=== PATIENT | female | born 1950 | race Caucasian/White ===

== ENCOUNTER 2018-03-26 18:15 | Observation (INO) | payer OTHER ==
[2018-03-26] MEDS ORDERED: Iodixanol 320 MG/ML 100 ML BOTTLE IV ONE (18:28)
[2018-03-26 18:31] LABS: BASO # 0.1 K/uL (0.0-0.2); BASO % 0.8 % (0.0-2.0); EOS # 0.3 K/uL (0.0-0.7); EOS % 4.8 % (0.0-4.0); HEMOGLOBIN 12.7 g/dL (11.0-16.0); LYMPH # 3.1 K/uL (1.0-4.3); LYMPH % 47.6 % (20.0-40.0); MEAN CELL VOLUME 80.1 fL (81.0-99.0); MEAN CORPUSCULAR HEMOGLOBIN 26.7 pg (27.0-31.0); MEAN CORPUSCULAR HGB CONC 33.3 g/dL (33.0-37.0); MONO # 0.5 K/uL (0.0-0.8); MONO % 7.2 % (0.0-10.0); NEUT # 2.6 K/uL (1.8-7.0); NEUT % 39.6 % (50.0-75.0); NRBC % 0.1 % (0.0-2.0); RBC 4.76 Mil/uL (3.80-5.20); RED CELL DISTRIBUTION WIDTH 14.7 % (11.5-14.5); WHITE BLOOD COUNT 6.6 K/uL (4.8-10.8)
[2018-03-26 18:38] LABS: PROTHROMBIN TIME 10.6 SECONDS (9.7-12.2)
[2018-03-26 18:45] LABS: ALB/GLOB RATIO 1.2 (1.0-2.1); ALBUMIN 4.3 g/dL (3.5-5.0); ALT/SGPT 25 U/L (9-52); AST/SGOT 26 U/L (14-36); BLOOD UREA NITROGEN 21 mg/dL (7-17); GFR AFRICAN-AMERICAN > 60; GFR NON-AFRICAN AMERICAN > 60; HDL CHOLESTEROL 55 mg/dL (30-70)
--- NOTE | 2018-03-26 18:50 | CT ---
PROCEDURE: CT HEAD WITHOUT CONTRAST. HISTORY: Code Stroke COMPARISON: None available. TECHNIQUE: Axial computed tomography images were obtained through the head/brain without intravenous contrast. Radiation dose: Total exam DLP = 1212.5 mGy-cm. This CT exam was performed using one or more of the following dose reduction techniques: Automated exposure control, adjustment of the mA and/or kV according to patient size, and/or use of iterative reconstruction technique. FINDINGS: HEMORRHAGE: No acute parenchymal, subarachnoid or extra-axial hemorrhage. BRAIN: No evidence of large acute infarct. VENTRICLES: No obstructive hydrocephalus. CALVARIUM: No calvarial fractures. PARANASAL SINUSES: Unremarkable as visualized. No significant inflammatory changes. MASTOID AIR CELLS: Unremarkable as visualized. No inflammatory changes. OTHER FINDINGS: None. IMPRESSION: No acute intracranial hemorrhage. These findings were discussed with emergency room attending physician at approximately 6:46 p.m. with written down and read back verification. The the noemí
[2018-03-26 18:55] LABS: LDL CHOLESTEROL 128 mg/dL (0-129)
--- NOTE | 2018-03-26 19:23 | C.PDOC ---
History Of Present Illness 67 y/o female brought to ER for sudden onset of the worst headache in her life. Patient has numbness and tingling upon arrival. Of note, HPI is limited due to patient's condition. Patients headache was onset 30 minutes prior to arrival. Family reports patient having slurred speech but no heard in ED. She is complaining of nausea and vomiting. Denies room spinning and photo phobia. PMD:None provided Time Seen by Provider: 03/26/18 18:55 Chief Complaint (Nursing): Headache History Per: Patient, Family History/Exam Limitations: clinical condition Onset/Duration Of Symptoms: Hrs Current Symptoms Are (Timing): Still Present Severity: Moderate Preceeding Symptoms: denies: Visual Disturbances Associated Symptoms: denies: Photophobia Recent travel outside of the [place]: No Additional History Per: Family Past Medical History Reviewed: Historical Data, Nursing Documentation, Vital Signs Vital Signs: Last Vital Signs Temp 98 F 03/26/18 19:10 Pulse 46 L 03/26/18 19:44 Resp 18 03/26/18 19:44 BP 139/68 03/26/18 19:44 Pulse Ox 100 03/27/18 00:22 - Medical History PMH: Anxiety Surgical History: No Surg Hx Family History: States: No Known Family Hx - Social History Hx Tobacco Use: No Hx Alcohol Use: No Hx Substance Use: No - Immunization History Hx Tetanus Toxoid Vaccination: No Hx Influenza Vaccination: No Hx Pneumococcal Vaccination: No Review Of Systems Review Of Systems: ROS cannot be obtained secondary to pt's inabilty to answer questions. Gastrointestinal: Positive for: Nausea, Vomiting Neurological: Positive for: Change in Speech (slurred), Headache, Dizziness. Negative for: Other (photophobia or room spinning) Physical Exam - Physical Exam Appears: Well, No Acute Distress Skin: Normal Color Head: Atraumatic, Normacephalic Eye(s): bilateral: Normal Inspection Nose: Normal Oral Mucosa: Moist Tongue: Normal Appearing Lips: Normal Appearing Teeth: Normal Dentition Gingiva: Normal Appearing Throat: Normal Neck: Normal Chest: Symmetrical Cardiovascular: Rhythm Regular Respiratory: Normal Breath Sounds Gastrointestinal/Abdominal: Normal Exam Rectal: Deferred Back: Normal Inspection, No CVA Tenderness, No Vertebral Tenderness, No Decreased ROM, No Muscle Spasm, No Paraspinal Tenderness Extremity: Normal ROM Extremity: Bilateral: Atraumatic, Hips Non-Tender, No Pedal Edema, Normal Color And Temperature, Normal ROM Neurological/Psych: Oriented x3, Normal Speech, Normal Cognition, Normal Cranial Nerves, No Cerebellar Signs, Normal Motor, Normal Sensation, Normal Reflexes, No Response To Commands, Eyes Open With Command Disoriented To: Person Gait: Steady Other Neurological Findings: No Facial Palsy, No Forehead Sparing, No Tongue Deviation, No Other Extremity: Right: No Drift, Left: No Drift, Upper: No Drift, Lower: No Drift ED Course And Treatment - Laboratory Results Result Diagrams: 03/26/18 18:27 03/26/18 18:27 O2 Sat by Pulse Oximetry: 100 (RA) Pulse Ox Interpretation: Normal Progress Note: Code Stroke initiated. Patient given Zofran PO for nausea and vomiting. Critical Care Time - Critical Care Note Total Time (in mins): 40 Documented critical care: time excludes all time spent performing seperately billable procedures. Medical Decision Making Medical Decision Making: NIH scale was found negative. Code stroke was called. 40 minutes of critical care time. CT of ahead for acute process. CT angio labs reviewed patient on continuous monitor. Multiple medications for her persistent dizziness. Case discussed with Dr. Pal and admitting attending. Patient has persistent nausea, vomiting, headache, and dizziness. Scribe Attestation: Documented by Stew Sommer acting as a scribe Ishaan Collins MD. ekg rate 47- sabiha carida pr-166 qrs-72 [id number] no ischemic changes Scribe Attestation: All medical record entries made by the Scribe were at my direction and personally dictated by me. I have reviewed the chart and agree that the record accurately reflects my personal performance of the history, physical exam, medical decision making, and the department course for this patient. I have also personally directed, reviewed, and agree with the discharge instructions and disposition. Disposition - Disposition Disposition: HOSPITALIZED Condition: GOOD - Scribe Statement The provider has reviewed the documentation as recorded by the Scribe Ankit Hussein Provider Attestation: All medical record entries made by the Scribe were at my direction and personally dictated by me. I have reviewed the chart and agree that the record accurately reflects my personal performance of the history, physical exam, medical decision making, and the department course for this patient. I have also personally directed, reviewed, and agree with the discharge instructions and disposition.
[2018-03-26] MEDS ORDERED: Magnesium Sulfate 1 gm in D5W 1 GM/100 ML BAG IVPB ONE ×2 (21:42→21:44)
--- NOTE | 2018-03-26 21:42 | CP.PCM.HP ---
<Natali Zaragoza - Last Filed: 03/26/18 22:02> History of Present Illness - History of Present Illness History of Present Illness: H&P: 67 year old female with past medical history of anxiety presented to hospital for headache and facial drooping. Patient is accompanied with daughter who helps with history. Patient developed a mild headache around 3 pm in the afternoon. BARBER was constant and accompanied with nausea. Patient took Advil for pain with no relief. Headache worsened throughout the day and patient began to feel dizzy. Around 4 pm, patient's headache was very severe and she started to retch. Patient's daughter then noticed a right sided lip droop and patient began to complain of right upper extremity numbness in digits 2-4. Patient was brought to the ED and had code stroke called. CT of head on admission was negative. Patient was given Fentanyl, Reglan and Zofran and patient's headache and nausea improved. Patient is still complaining of severe lightheadedness with movement of her head. Currently, patient denies having any CP, SOB, abd pain, N/V/D/C, F/C, upper or lower extremity numbness, tingling or weakness. PMHx: stated above Sx: Social: former smoker, quit 10 years ago, denies ETOH or drug use No home medications NKDA Present on Admission - Present on Admission Any Indicators Present on Admission: No Review of Systems - Constitutional Constitutional: absent: Chills, Fever - EENT Eyes: absent: Blurred Vision, Change in Vision, Spots in Vision Nose/Mouth/Throat: absent: Nasal Congestion, Sore Throat - Cardiovascular Cardiovascular: absent: Chest Pain, Dyspnea, Dyspnea on Exertion, Leg Edema, Pedal Edema - Respiratory Respiratory: absent: Cough, Dyspnea, Wheezing, Chest Congestion - Gastrointestinal Gastrointestinal: Nausea. absent: Abdominal Pain, Constipation, Diarrhea, Vomiting - Genitourinary Genitourinary: absent: Dysuria, Urinary Frequency - Musculoskeletal Musculoskeletal: absent: Back Pain, Numbness - Integumentary Integumentary: absent: Acne, Lesions, Rash - Neurological Neurological: Dizziness, Numbness, Headaches. absent: Syncope, Weakness - Psychiatric Psychiatric: absent: Anxiety, Depression Past Patient History - Past Social History Smoking Status: Former Smoker Chewing Tobacco Use: No Cigar Use: No Alcohol: None Drugs: Denies Home Situation {Lives}: With Family - PSYCHIATRIC Hx Anxiety: Yes Hx Substance Use: No - SURGICAL HISTORY Hx Surgeries: No - ANESTHESIA Hx Anesthesia: No Hx Anesthesia Reactions: No Meds Allergies/Adverse Reactions: Allergies Allergy/AdvReac Type Severity Reaction Status Date / Time No Known Allergies Allergy Verified 03/26/18 18:19 Physical Exam - Constitutional Appears: Non-toxic, No Acute Distress - Head Exam Head Exam: ATRAUMATIC - Eye Exam Eye Exam: EOMI Pupil Exam: NORMAL ACCOMODATION, PERRL - ENT Exam ENT Exam: Mucous Membranes Moist - Respiratory Exam Respiratory Exam: Clear to Auscultation Bilateral. absent: Accessory Muscle Use , Rales, Rhonchi, Wheezes, Respiratory Distress - Cardiovascular Exam Cardiovascular Exam: REGULAR RHYTHM, +S1, +S2. absent: Diastolic murmur, Gallop , Rubs, Systolic Murmur - GI/Abdominal Exam GI & Abdominal Exam: Normal Bowel Sounds, Soft. absent: Distended, Firm, Guarding, Rigid, Tenderness - Extremities Exam Extremities exam: Negative for: pedal edema, tenderness - Neurological Exam Neurological exam: Alert, CN II-XII Intact, Oriented x3, Reflexes Normal Additional comments: equal and normal upper and lower motor strength equal sensation in UE and LE B/L - Psychiatric Exam Psychiatric exam: Normal Affect, Normal Mood - Skin Skin Exam: Dry, Intact, Normal Color, Warm Results - Vital Signs Recent Vital Signs: Last Vital Signs Temp 98 F 03/26/18 19:10 Pulse 46 L 03/26/18 19:44 Resp 18 03/26/18 19:44 BP 139/68 03/26/18 19:44 Pulse Ox 99 03/26/18 19:44 - Labs Result Diagrams: 03/26/18 18:27 03/26/18 18:27 Labs: Laboratory Results - last 24 hr 03/26/18 03/26/18 03/26/18 18:27 18:27 18:27 WBC 6.6 RBC 4.76 Hgb 12.7 Hct 38.1 MCV 80.1 L MCH 26.7 L MCHC 33.3 RDW 14.7 H Plt Count 221 MPV 9.0 Neut % (Auto) 39.6 L Lymph % (Auto) 47.6 H [place] % (Auto) 7.2 Eos % (Auto) 4.8 H Baso % (Auto) 0.8 Neut # (Auto) 2.6 Lymph # (Auto) 3.1 [place] # (Auto) 0.5 Eos # (Auto) 0.3 Baso # (Auto) 0.1 PT 10.6 INR 1.0 APTT 32 Sodium 143 Potassium 3.9 Chloride 105 Carbon Dioxide 25 Anion Gap 16 BUN 21 H Creatinine 0.8 Est GFR ( Amer) > 60 Est GFR (Non-Af Amer) > 60 POC Glucose (mg/dL) Random Glucose 92 Hemoglobin A1c Calcium 11.0 H Total Bilirubin 0.5 AST 26 ALT 25 Alkaline Phosphatase 84 Troponin I < 0.0120 Total Protein 8.0 Albumin 4.3 Globulin 3.6 Albumin/Globulin Ratio 1.2 Triglycerides 76 Cholesterol 210 H LDL Cholesterol Direct 128 HDL Cholesterol 55 Blood Type Antibody Screen 03/26/18 03/26/18 03/26/18 18:27 18:27 18:28 WBC RBC Hgb Hct MCV MCH MCHC RDW Plt Count MPV Neut % (Auto) Lymph % (Auto) [place] % (Auto) Eos % (Auto) Baso % (Auto) Neut # (Auto) Lymph # (Auto) [place] # (Auto) Eos # (Auto) Baso # (Auto) PT INR APTT Sodium Potassium Chloride Carbon Dioxide Anion Gap BUN Creatinine Est GFR ( Amer) Est GFR (Non-Af Amer) POC Glucose (mg/dL) 81 Random Glucose Hemoglobin A1c 6.3 Calcium Total Bilirubin AST ALT Alkaline Phosphatase Troponin I Total Protein Albumin Globulin Albumin/Globulin Ratio Triglycerides Cholesterol LDL Cholesterol Direct HDL Cholesterol Blood Type B POSITIVE Antibody Screen Positive Assessment & Plan - Assessment and Plan (Free Text) Assessment: 67 year old female with no significant past medical history is admitted for questionable TIA vs. complex migraine. Code stroke was called in ED. CT of head was negative. CTA of head and neck were also negative. Patient's calculated ASCVD risk is 7.2% for 10 year risk of heart disease or stroke. Headache - Pt received fentanyl, zofran and reglan in ED - Neurologist, Dr. Pal consulted. recommend that pt receive magnesium sulfate , decadron and depakote 500 mg IVP once - Will give pt Aspirin 325 mg and start 81 mg Aspirin - Will start crestor 10 mg - Zofran prn - Toradol 15 mg po qd - will check MRI and MRA of head and neck - Will check echo and serial ANJELICA panel - Hgb A1c is 6.3 - Lipid panel showed Cholesterol 210, HDL 55, TG 76 LDL 128 Glucose intolerance - Recommend diet modification and exercise - Accucheck achs Prophylaxis - SCDs, Lovenox - Pepcid Case discussed with attending, Dr. Rae - Date & Time Date: 03/26/18 Time: 21:42 <John Rae - Last Filed: 03/27/18 06:06> Results - Vital Signs Recent Vital Signs: Last Vital Signs Temp 97.7 F 03/27/18 04:01 Pulse 45 L 03/27/18 04:21 Resp 20 03/27/18 04:01 BP 117/68 03/27/18 04:01 Pulse Ox 98 03/27/18 04:01 - Labs Result Diagrams: 03/26/18 18:27 03/26/18 18:27 Labs: Laboratory Results - last 24 hr 03/26/18 03/26/18 03/26/18 18:27 18:27 18:27 WBC 6.6 RBC 4.76 Hgb 12.7 Hct 38.1 MCV 80.1 L MCH 26.7 L MCHC 33.3 RDW 14.7 H Plt Count 221 MPV 9.0 Neut % (Auto) 39.6 L Lymph % (Auto) 47.6 H [place] % (Auto) 7.2 Eos % (Auto) 4.8 H Baso % (Auto) 0.8 Neut # (Auto) 2.6 Lymph # (Auto) 3.1 [place] # (Auto) 0.5 Eos # (Auto) 0.3 Baso # (Auto) 0.1 PT 10.6 INR 1.0 APTT 32 Sodium 143 Potassium 3.9 Chloride 105 Carbon Dioxide 25 Anion Gap 16 BUN 21 H Creatinine 0.8 Est GFR ( Amer) > 60 Est GFR (Non-Af Amer) > 60 POC Glucose (mg/dL) Random Glucose 92 Hemoglobin A1c Calcium 11.0 H Total Bilirubin 0.5 AST 26 ALT 25 Alkaline Phosphatase 84 Total Creatine Kinase CK-MB (Mass) Troponin I < 0.0120 Total Protein 8.0 Albumin 4.3 Globulin 3.6 Albumin/Globulin Ratio 1.2 Triglycerides 76 Cholesterol 210 H LDL Cholesterol Direct 128 HDL Cholesterol 55 Blood Type Antibody Screen Antibody Identification 03/26/18 03/26/18 03/26/18 18:27 18:27 18:28 WBC RBC Hgb Hct MCV MCH MCHC RDW Plt Count MPV Neut % (Auto) Lymph % (Auto) [place] % (Auto) Eos % (Auto) Baso % (Auto) Neut # (Auto) Lymph # (Auto) [place] # (Auto) Eos # (Auto) Baso # (Auto) PT INR APTT Sodium Potassium Chloride Carbon Dioxide Anion Gap BUN Creatinine Est GFR ( Amer) Est GFR (Non-Af Amer) POC Glucose (mg/dL) 81 Random Glucose Hemoglobin A1c 6.3 Calcium Total Bilirubin AST ALT Alkaline Phosphatase Total Creatine Kinase CK-MB (Mass) Troponin I Total Protein Albumin Globulin Albumin/Globulin Ratio Triglycerides Cholesterol LDL Cholesterol Direct HDL Cholesterol Blood Type B POSITIVE Antibody Screen Positive Antibody Identification Inconclusive Panel 03/27/18 00:43 WBC RBC Hgb Hct MCV MCH MCHC RDW Plt Count MPV Neut % (Auto) Lymph % (Auto) [place] % (Auto) Eos % (Auto) Baso % (Auto) Neut # (Auto) Lymph # (Auto) [place] # (Auto) Eos # (Auto) Baso # (Auto) PT INR APTT Sodium Potassium Chloride Carbon Dioxide Anion Gap BUN Creatinine Est GFR ( Amer) Est GFR (Non-Af Amer) POC Glucose (mg/dL) Random Glucose Hemoglobin A1c Calcium Total Bilirubin AST ALT Alkaline Phosphatase Total Creatine Kinase 112 CK-MB (Mass) 1.56 Troponin I 0.0390 Total Protein Albumin Globulin Albumin/Globulin Ratio Triglycerides Cholesterol LDL Cholesterol Direct HDL Cholesterol Blood Type Antibody Screen Antibody Identification Assessment & Plan - Date & Time Date: 03/27/18 (I have seen and examined the patient. I agree with the findings and plan of care as documented by Dr. Zaragoza. Patient with TIA. Code Stroke called in ED. Still with headache. Neuro consulted. MRI brain in AM. 2D Echo. ROMIx3 with EKG. Aspirin and Statin. Monitor for acute changes) Time: 06:05 Attending/Attestation - Attestation I have personally seen and examined this patient.: Yes I have fully participated in the care of the patient.: Yes I have reviewed all pertinent clinical information: Yes
[2018-03-26] MEDS ORDERED: Magnesium Sulfate 1 gm in D5W 2 GM/200 ML BAG IVPB ONE (21:51)
[2018-03-26] MEDS ORDERED: DiphenhydrAMINE 50 mg/ml Inj ONE (21:58)
[2018-03-26] MEDS ORDERED: DiphenhydrAMINE 50 mg/ml Inj IVP STA (21:58)
[2018-03-26] MEDS ORDERED: Valproate 500 MG in Sodium Chloride 0.9% 100 ML IVPB ONE (22:28)
[2018-03-27 01:26] LABS: CK-MB 1.56 ng/mL (0.0-3.38)
[2018-03-27 01:32] LABS: TROPONIN I 0.039 ng/mL (0.00-0.120)
[2018-03-27 07:18] LABS: BASO % 0.6 % (0.0-2.0); HEMOGLOBIN 12.5 g/dL (11.0-16.0); LYMPH # 1.3 K/uL (1.0-4.3); MEAN CELL VOLUME 80.8 fL (81.0-99.0); MEAN CORPUSCULAR HEMOGLOBIN 26.3 pg (27.0-31.0); MEAN CORPUSCULAR HGB CONC 32.6 g/dL (33.0-37.0); MEAN PLATELET VOLUME 9.3 fL (7.2-11.7); MONO # 0.1 K/uL (0.0-0.8); MONO % 1.5 % (0.0-10.0); NEUT # 4.2 K/uL (1.8-7.0); NEUT % 74.9 % (50.0-75.0); RBC 4.76 Mil/uL (3.80-5.20); WHITE BLOOD COUNT 5.5 K/uL (4.8-10.8)
[2018-03-27 07:40] LABS: ALB/GLOB RATIO 1.1 (1.0-2.1); ALBUMIN 3.9 g/dL (3.5-5.0); ALT/SGPT 15 U/L (9-52); AST/SGOT 26 U/L (14-36); BLOOD UREA NITROGEN 17 mg/dL (7-17); CALCIUM 10.3 mg/dl (8.6-10.4); GFR AFRICAN-AMERICAN > 60; GFR NON-AFRICAN AMERICAN > 60
[2018-03-27 07:46] LABS: CK-MB 1.25 ng/mL (0.0-3.38)
--- NOTE | 2018-03-27 08:12 | RAD ---
Chest x-ray single frontal view History: Code stroke. Comparison: None available. Findings: Diffuse increased interstitial lung markings suggestive for venous congestion versus edema versus infiltrate. Patchy increased markings at the lung bases; left greater than right. Trace left pleural effusion. Enlarged ectatic aorta. Cardiomegaly. Degenerative changes in the spine and shoulders. Impression: Diffuse increased interstitial lung markings suggestive for venous congestion versus edema versus infiltrate. Patchy increased markings at the lung bases; left greater than right. Trace left pleural effusion. Enlarged ectatic aorta. Cardiomegaly.
--- NOTE | 2018-03-27 09:32 | CP.PCM.PN ---
<Ai Geller - Last Filed: 03/27/18 16:24> Subjective - Date & Time of Evaluation Date of Evaluation: 03/27/18 Time of Evaluation: 09:31 - Subjective Subjective: Progress Note for Dr. Jalloh Patient seen and examined at bedside. No acute events overnight. Patient currently denies dizziness, weakness, numbness, tingling. Patient denied history of migraines and states she was told she had high blood pressure every so often. Patient appears tired after having MRA head, neck, MRI brain, and Echo done. Patient hasn't seen neurologist today due to her going for many exams. Patient is aware that she has neurology on board for her care. Objective - Vital Signs/Intake and Output Vital Signs (last 24 hours): Temp Pulse Resp BP Pulse Ox 97.6 F 48 L 18 110/62 100 03/27/18 07:00 03/27/18 07:00 03/27/18 07:00 03/27/18 07:00 03/27/18 07:00 - Medications Medications: Current Medications Aspirin (Aspirin) 325 mg PO ONCE ONE Stop: 03/27/18 22:28 Aspirin (Ecotrin) 81 mg PO DAILY [facility] Enoxaparin Sodium (Lovenox) 40 mg SC DAILY [facility] Famotidine (Pepcid) 20 mg PO BID [facility] Last Admin: 03/27/18 00:28 Dose: 20 mg Ketorolac Tromethamine (Toradol) 15 mg IVP Q6 PRN PRN Reason: Pain, moderate (4-7) Magnesium Oxide (Mag-Ox) 400 mg PO BID [facility] Ondansetron HCl (Zofran Inj) 4 mg IVP Q6 PRN PRN Reason: Nausea/Vomiting Pneumococcal Polyvalent Vaccine (Pneumovax 23 Vaccine) 0.5 ml IM .ONCE ONE Stop: 03/28/18 10:01 Rosuvastatin Calcium (Crestor) 10 mg PO HS [facility] Last Admin: 03/27/18 00:28 Dose: 10 mg - Labs Labs: 03/27/18 07:12 03/27/18 07:12 PT 10.6 SECONDS (9.7-12.2) 03/26/18 18:27 INR 1.0 03/26/18 18:27 APTT 32 SECONDS (21-34) 03/26/18 18:27 - Additional Findings Additional findings: - Constitutional Appears: Non-toxic, No Acute Distress - Head Exam Head Exam: NORMOCEPHALIC, ATRAUMATIC - Eye Exam Eye Exam: EOMI Pupil Exam: NORMAL ACCOMODATION, PERRL - ENT Exam ENT Exam: Mucous Membranes Moist - Respiratory Exam Respiratory Exam: Clear to Auscultation Bilateral. absent: Accessory Muscle Use , Rales, Rhonchi, Wheezes, Respiratory Distress - Cardiovascular Exam Cardiovascular Exam: REGULAR RHYTHM, +S1, +S2. absent: Diastolic murmur, Gallop , Rubs, Systolic Murmur - GI/Abdominal Exam GI & Abdominal Exam: Normal Bowel Sounds, Soft. absent: Distended, Firm, Guarding, Rigid, Tenderness - Extremities Exam Extremities exam: Negative for: pedal edema, tenderness - Neurological Exam Neurological exam: Alert, CN II-XII Intact, Oriented x3, Reflexes Normal Additional comments: equal and normal upper and lower motor strength equal sensation in UE and LE B/L - Psychiatric Exam Psychiatric exam: Normal Affect, Normal Mood - Skin Skin Exam: Dry, Intact, Normal Color, Warm Assessment and Plan - Assessment and Plan (Free Text) Assessment: 67 year old female with no significant past medical history is admitted for questionable TIA vs. complex migraine. Code stroke was called in ED. CT of head was negative. CTA of head and neck were also negative. Patient's calculated ASCVD risk is 7.2% for 10 year risk of heart disease or stroke. complex migraine v TIA In ED: Pt received fentanyl, zofran and reglan Neurology consult: Dr. Pal consulted. It was recommended that patient receive magnesium sulfate, decadron and depakote 500 mg IVP once Hgb A1c is 6.3 Lipid panel showed Cholesterol 210, HDL 55, TG [address] head: no intracranial hemorrhage Brain MRI no acute intracranial hemorrhage or infarct. Chronic lacunar type infarct. Mild generalized volume loss. MRA Head w/o contrast: unremarkable angiography of the brain MRA neck w/o contrast: normal angiography of the neck f/u Echo: Seroquel 25mg PO once 03/27 06:18 ASA 81 mg PO QD Crestor 10mg PO QHS Pain: toradol 15mg IVP Q6H PRN Nausea: Zofran 4mg IVP Q6H PRN Glucose intolerance - Recommend diet modification and exercise - Accucheck achs low TSH 03/27 0.38 f/u free T4 Prophylaxis SCDs, Lovenox 40 SC QD Pepcid 20mg PO BID Diet: Heart Healthy diet, low consistent carbohydrate diet discussed with Dr. Yeimi Geller DO PGY1 <Brittany Jalloh V - Last Filed: 03/27/18 17:39> Objective - Vital Signs/Intake and Output Vital Signs (last 24 hours): Temp Pulse Resp BP Pulse Ox 97.6 F 51 L 18 119/71 98 03/27/18 15:00 03/27/18 16:00 03/27/18 15:00 03/27/18 15:00 03/27/18 15:00 - Medications Medications: Current Medications Aspirin (Aspirin) 325 mg PO ONCE ONE Stop: 03/27/18 22:28 Aspirin (Ecotrin) 81 mg PO DAILY [facility] Last Admin: 03/27/18 11:10 Dose: 81 mg Enoxaparin Sodium (Lovenox) 40 mg SC DAILY [facility] Last Admin: 03/27/18 11:11 Dose: 40 mg Famotidine (Pepcid) 20 mg PO BID [facility] Last Admin: 03/27/18 11:10 Dose: 20 mg Ketorolac Tromethamine (Toradol) 15 mg IVP Q6 PRN PRN Reason: Pain, moderate (4-7) Stop: 03/28/18 22:18 Magnesium Oxide (Mag-Ox) 400 mg PO BID [facility] Last Admin: 03/27/18 11:10 Dose: 400 mg Ondansetron HCl (Zofran Inj) 4 mg IVP Q6 PRN PRN Reason: Nausea/Vomiting Pneumococcal Polyvalent Vaccine (Pneumovax 23 Vaccine) 0.5 ml IM .ONCE ONE Stop: 03/28/18 10:01 Rosuvastatin Calcium (Crestor) 10 mg PO HS [facility] Last Admin: 03/27/18 00:28 Dose: 10 mg - Labs Labs: 03/27/18 07:12 03/27/18 07:12 PT 10.6 SECONDS (9.7-12.2) 03/26/18 18:27 INR 1.0 03/26/18 18:27 APTT 32 SECONDS (21-34) 03/26/18 18:27 Attending/Attestation - Attestation I have personally seen and examined this patient.: Yes I have fully participated in the care of the patient.: Yes I have reviewed all pertinent clinical information, including history, physical exam and plan: Yes Notes (Text): Patient seen, examined and case discussed with day-time resident. Patient seen this afternoon. Patient completed series of scans this morning including MRIs, Echocardiogram. Patient reports she has not slept yet and reports mild headache but not as bad compared to yesterday. Physical therapy worked with her this afternoon recommending for acute rehab. Will optimize her activity prior to discharge. Assessment/Plan 1) Headache Complex Migraine Headache * In ED: Pt received fentanyl, zofran and reglan. * Patient received on admission Magnesium sulfate, decadron and depakote 500 mg IVP once on admission. This morning patient received Seroquel 25mg PO once. * Neurology consult: Dr. Pal on board-->help appreciated. * Hgb A1c is 6.3 * Lipid panel showed Cholesterol 210, HDL 55, TG 76 LDL 128 * CT head: no intracranial hemorrhage * Brain MRI no acute intracranial hemorrhage or infarct. Chronic lacunar type infarct. Mild generalized volume loss. * MRA Head w/o contrast: unremarkable angiography of the brain * MRA neck w/o contrast: normal angiography of the neck * f/u Echo pending report * ASA 81 mg PO qdaily * Crestor 10mg PO QHS * Nausea: Zofran 4mg IVP Q6H PRN 2) Impaired Glucose intolerance * Recommend diet modification and exercise * Accucheck achs 3) Bradycardia * Continue to monitor on telemetry * pending echocardiogram 4) Low TSH * 0.38; f/u free T4 5) Dysuria * Start Ciprofloxacin 500mg PO BID to cover for UTI * Ordered for UA and urine culture 6) Prophylaxis * SCDs * Lovenox 40 SC QD * Pepcid 20mg PO BID Disposition: f/u physical therapy, see if symptoms are abated of headache are abated, f/u echo and cardio. Possible d/c in AM
--- NOTE | 2018-03-27 11:04 | MRI ---
PROCEDURE: MRI of the brain dated 03/27/2018. HISTORY: TIA COMPARISON: Comparison made with CTA brain 03/26/2018 TECHNIQUE: Multiplanar, multisequence MR images of the brain were obtained without intravenous contrast enhancement. FINDINGS: HEMORRHAGE: No acute parenchymal, subarachnoid or extra-axial hemorrhage. No evidence of hemosiderin deposition seen on gradient echo weighted sequence. DWI: No evidence of an acute or early subacute infarction seen on diffusion imaging. . BRAIN PARENCHYMA: There are a few tiny foci of prolonged T2 signal scattered about the deep and subcortical white matter both cerebral hemispheres most consistent with tiny chronic lacunar type infarcts. None of these changes exhibit restricted diffusion. No obvious parenchymal nor extra-axial mass or collection identified on this noncontrast exam. Mild generalized volume loss VENTRICLES: No obstructive hydrocephalus. CRANIUM: No acute calvarial abnormalities ORBITS: Orbits and contents unremarkable. Paranasal sinuses/Mastoids Clear VASCULAR SYSTEM: Visualized major vascular flow voids at skull base patent. OTHER FINDINGS: None. IMPRESSION: No acute intracranial hemorrhage or infarct. Lacunar type infarcts there are several small of chronic appearing lacunar type infarcts scattered about the deep and subcortical white matter both cerebral hemispheres. The Mild generalized volume loss.
--- NOTE | 2018-03-27 11:05 | CT ---
PROCEDURE: CT Angiography of the Brain. HISTORY: code stroke COMPARISON: None available. TECHNIQUE: CT angiography of the intracranial and neck arteries was performed. Coronal and sagittal maximum intensity projection reformatted images were generated. Contrast Dose: Visipaque 320, 100 cc Radiation dose:Total exam DLP = 517.53 mGy-cm. This CT exam was performed using one or more of the following dose reduction techniques: Automated exposure control, adjustment of the mA and/or kV according to patient size, and/or use of iterative reconstruction technique. FINDINGS: INTERNAL CEREBRAL ARTERIES: The skull base, petrous, cavernous and supraclinoid segments are bilaterally widely patent. ANTERIOR CEREBRAL ARTERIES: Unremarkable. A1 and A2 segments are widely patent. Smaller distal branches unremarkable, as visualized. MIDDLE CEREBRAL ARTERIES: Unremarkable. M1 and M2 segments are widely patent. Perisylvian branches grossly symmetric. POSTERIOR CIRCULATION: Basilar Artery: Unremarkable. Distal Vertebral Arteries: Unremarkable. Posterior Cerebral Arteries: Unremarkable. Posterior Inferior Cerebellar Arteries: Unremarkable. NECK CTA: Common Carotid arteries: The bilateral common carotid appear widely patent from their origins to their bifurcations with no significant stenosis appreciated. No evidence to suggest common carotid artery dissection. Internal Carotid arteries: No significant stenosis is appreciated throughout the cervical internal carotid artery segments bilaterally and there is no evidence of dissection either. External Carotid arteries: Appear unremarkable bilaterally. Vertebral arteries: The bilateral vertebral arteries appear patent from their origins to their junction with the basilar artery. No significant stenosis or definite pattern of dissection. Relatively prominent left vertebral atherosclerosis seen at the proximal segment without narrowing the lumen significantly however. ANEURYSM/ VASCULAR MALFORMATIONS: None. OTHER FINDINGS: None. IMPRESSION: No significant stenosis throughout Intracranial and Neck CT angiography. Concordant preliminary report from [facility], 03/26/2018.
[2018-03-27] MEDS: Magnesium Oxide 400 mg Tab UD PO SCH ×2 (11:10→17:35)
[2018-03-27] MEDS: Enoxaparin 40 mg Syringe SC SCH (11:11)
--- NOTE | 2018-03-27 11:15 | MRI ---
PROCEDURE: MR Angiography of the neck without contrast HISTORY: TIA COMPARISON: Comparison made with CTA of the neck dated 03/26/2018 TECHNIQUE: 3D Edln-kg-tmxsea angiography of the neck was performed. Rotating maximum intensity projection images of the cervical carotid and vertebral arteries were generated. The origins of the common carotid arteries were not visualized, which is a limitation inherent to the non-contrast time of flight technique. FINDINGS: RIGHT CAROTID ARTERIES: Common Carotid Artery: Normal. Carotid Bifurcation: Normal. Internal Carotid Artery:Normal. External Carotid Artery (proximal branches): Normal. LEFT CAROTID ARTERIES: Common Carotid Artery: Normal. Carotid Bifurcation: Normal. Internal Carotid Artery:Normal. External Carotid Artery (proximal branches): Normal. VERTEBRAL ARTERIES: Minor asymmetry of the vertebral arteries left-side of which is slightly larger in caliber/ more dominant than the right felt to represent an anatomic variation OTHER FINDINGS: None. IMPRESSION: Normal MR Angiography of the neck.
--- NOTE | 2018-03-27 11:18 | MRI ---
PROCEDURE: Magnetic Resonance Angiography Brain HISTORY: TIA noemí COMPARISON: None available. TECHNIQUE: 3D time of flight MR angiography of the intracranial arteries was performed. Rotating maximum intensity projection images were generated. FINDINGS: INTERNAL CAROTID ARTERIES: Unremarkable. The skull base, petrous, cavernous and supraclinoid segments are bilaterally widely patient. ANTERIOR CEREBRAL ARTERIES: Unremarkable. A1 and A2 segments are widely patent. Smaller distal branches unremarkable, as visualized. MIDDLE CEREBRAL ARTERIES: Unremarkable. M1 and M2 segments are widely patent. Perisylvian branches grossly symmetric. POSTERIOR CIRCULATION: Basilar Artery: Unremarkable. Posterior Cerebral Arteries: Unremarkable. Posterior Inferior Cerebellar Arteries: Unremarkable. Distal Vertebral Arteries: Minor asymmetry of the vertebral arteries left-sided which is larger in caliber/ more dominant than the right felt to represent an anatomic variant ANEURYSM/ VASCULAR MALFORMATIONS: None. OTHER FINDINGS: None. IMPRESSION: Unremarkable MR angiography of the brain.
--- NOTE | 2018-03-27 12:38 | CARD ---
APPROVED REPORT EKG Measurement Heart [id number] CT [id number] <Conclusion> Sinus bradycardia Cannot rule out Anterior infarct, age undetermined Abnormal ECG
--- NOTE | 2018-03-27 18:21 | CARD ---
APPROVED REPORT EXAM: Two-dimensional and M-mode echocardiogram with Doppler and color Doppler. Other Information Quality : GoodRhythm : INDICATION CVA/TIA Dizziness and Vertigo 2D DIMENSIONS IVSd1.2 (0.7-1.1cm)LVDd4.3 (3.9-5.9cm) PWd0.9 (0.7-1.1cm)LVDs1.9 (2.5-4.0cm) FS (%) 56.8 %LVEF (%)87.3 (>50%) M-Mode DIMENSIONS RVDd1.79 (2.1-3.2cm)Left Atrium (MM)3.71 (2.5-4.0cm) IVSd1.18 (0.7-1.1cm)Aortic Root2.31 (2.2-3.7cm) LVDd4.62 (4.0-5.6cm)Aortic Cusp Exc.1.75 (1.5-2.0cm) PWd0.97 (0.7-1.1cm)FS (%) 57 % LVDs2.00 (2.0-3.8cm)LVEF (%)87 (>50%) Mitral Valve MV E Objrzoic69.6cm/sMV A Hrypyssf17.0cm/sE/A ratio0.7 TDI E/Lateral E'0.0E/Medial E'0.0 Tricuspid Valve TR Peak Rnlyntfm400av/sTR Peak Gr.[id number] LEFT VENTRICLE The left ventricle is normal size. There is normal left ventricular wall thickness. Left ventricle is normal. The Ejection Fraction is 65-70%. There is normal LV segmental wall motion. Transmitral Doppler flow pattern is Grade I-abnormal relaxation pattern. There is no ventricular septal defect visualized. RIGHT VENTRICLE The right ventricle is normal size. The right ventricular systolic function is normal. ATRIA The left atrium is mildly dilated. The right atrium size is normal. AORTIC VALVE The aortic valve is mildly sclerotic. The aortic valve is tri-cuspid. No aortic regurgitation is present. There is no aortic valvular stenosis. MITRAL VALVE The mitral valve is normal in structure. There is no evidence of mitral valve prolapse. There is no mitral valve regurgitation noted. TRICUSPID VALVE The tricuspid valve is normal in structure. There is trace tricuspid regurgitation. There is no pulmonary hypertension. PULMONIC VALVE The pulmonic valve is not well visualized. There is trace pulmonic valvular regurgitation. GREAT VESSELS The aortic root is normal in size. The ascending aorta is normal in size. no subcoastal views PERICARDIAL EFFUSION There is a trace circumferential pericardial effusion. <Conclusion> Left ventricle is normal. The Ejection Fraction is 65-70%. Transmitral Doppler flow pattern is Grade I-abnormal relaxation pattern. There is a trace circumferential pericardial effusion.
--- NOTE | 2018-03-27 19:38 | CP.PCM.CON ---
History of Present Illness - History of Present Illness History of Present Illness: Mrs. Harvey is a 67-year-old woman with a past medical history of pre-DM, HTN, who states that yesterday she developed a severe headache that is bifrontal, as well as nausea and a sensation of spinning. These symptoms were also associated with a left facial droop that was noticed by one of her daughters. The patient presented to the ED where she continued to have the headache, but facial droop had dissipated. She improved with decadron, magnesium and depakote. Today, her headache is 2/10 in severity and she no longer feels dizzy. Her neuroimaging did not show any acute findings and there was no evidence of vascular stenosis on MRA of the head/neck. There were some white matter hyperintensities consistent with small chronic lacunar infarcts in the basal ganalia. Review of Systems - Review of Systems All systems: reviewed and no additional remarkable complaints except Past Patient History - Past Social History Smoking Status: Former Smoker Chewing Tobacco Use: No Cigar Use: No Alcohol: None Drugs: Denies Home Situation {Lives}: With Family - PSYCHIATRIC Hx Anxiety: Yes Hx Substance Use: No - SURGICAL HISTORY Hx Surgeries: No - ANESTHESIA Hx Anesthesia: No Hx Anesthesia Reactions: No Meds Allergies/Adverse Reactions: Allergies Allergy/AdvReac Type Severity Reaction Status Date / Time No Known Allergies Allergy Verified 03/26/18 18:19 - Medications Medications: Current Medications Aspirin (Aspirin) 325 mg PO ONCE ONE Stop: 03/27/18 22:28 Aspirin (Ecotrin) 81 mg PO DAILY [facility] Last Admin: 03/27/18 11:10 Dose: 81 mg Ciprofloxacin (Cipro) 500 mg PO BID [facility] PRN Reason: Protocol Last Admin: 03/27/18 18:17 Dose: 500 mg Enoxaparin Sodium (Lovenox) 40 mg SC DAILY [facility] Last Admin: 03/27/18 11:11 Dose: 40 mg Famotidine (Pepcid) 20 mg PO BID [facility] Last Admin: 03/27/18 17:35 Dose: 20 mg Magnesium Oxide (Mag-Ox) 400 mg PO BID [facility] Last Admin: 03/27/18 17:35 Dose: 400 mg Ondansetron HCl (Zofran Inj) 4 mg IVP Q6 PRN PRN Reason: Nausea/Vomiting Pneumococcal Polyvalent Vaccine (Pneumovax 23 Vaccine) 0.5 ml IM .ONCE ONE Stop: 03/28/18 10:01 Rosuvastatin Calcium (Crestor) 10 mg PO HS [facility] Last Admin: 03/27/18 00:28 Dose: 10 mg Physical Exam - Constitutional Appears: Well - Head Exam Head Exam: ATRAUMATIC, NORMAL INSPECTION, NORMOCEPHALIC - Eye Exam Eye Exam: EOMI, Normal appearance, PERRL - Neurological Exam Neurological exam: Alert, CN II-XII Intact, Normal Gait, Oriented x3, Reflexes Normal Results - Vital Signs Recent Vital Signs: Last Vital Signs Temp 97.6 F 03/27/18 15:00 Pulse 51 L 03/27/18 16:00 Resp 18 03/27/18 15:00 BP 119/71 03/27/18 15:00 Pulse Ox 98 03/27/18 15:00 - Labs Result Diagrams: 03/27/18 07:12 03/27/18 07:12 Labs: Laboratory Results - last 24 hr 03/26/18 03/27/18 03/27/18 18:27 00:43 07:00 WBC RBC Hgb Hct MCV MCH MCHC RDW Plt Count MPV Neut % (Auto) Lymph % (Auto) [place] % (Auto) Eos % (Auto) Baso % (Auto) Neut # (Auto) Lymph # (Auto) [place] # (Auto) Eos # (Auto) Baso # (Auto) Sodium Potassium Chloride Carbon Dioxide Anion Gap BUN Creatinine Est GFR ( Amer) Est GFR (Non-Af Amer) POC Glucose (mg/dL) 137 H Random Glucose Calcium Total Bilirubin AST ALT Alkaline Phosphatase Total Creatine Kinase 112 CK-MB (Mass) 1.56 Troponin I 0.0390 Total Protein Albumin Globulin Albumin/Globulin Ratio Free T4 TSH 3rd Generation Blood Type B POSITIVE Antibody Screen Positive Antibody Identification Cancelled 03/27/18 03/27/18 03/27/18 07:12 07:12 16:17 WBC 5.5 RBC 4.76 Hgb 12.5 Hct 38.5 MCV 80.8 L MCH 26.3 L MCHC 32.6 L RDW 15.0 H Plt Count 208 MPV 9.3 Neut % (Auto) 74.9 Lymph % (Auto) 23.0 [place] % (Auto) 1.5 Eos % (Auto) 0.0 Baso % (Auto) 0.6 Neut # (Auto) 4.2 Lymph # (Auto) 1.3 [place] # (Auto) 0.1 Eos # (Auto) 0.0 Baso # (Auto) 0.0 Sodium 144 Potassium 4.5 Chloride 107 Carbon Dioxide 26 Anion Gap 16 BUN 17 Creatinine 0.7 Est GFR ( Amer) > 60 Est GFR (Non-Af Amer) > 60 POC Glucose (mg/dL) 149 H Random Glucose 146 H Calcium 10.3 Total Bilirubin 0.5 AST 26 ALT 15 Alkaline Phosphatase 76 Total Creatine Kinase 76 CK-MB (Mass) 1.25 Troponin I 0.0120 Total Protein 7.4 Albumin 3.9 Globulin 3.4 Albumin/Globulin Ratio 1.1 Free T4 TSH 3rd Generation 0.38 L Blood Type Antibody Screen Antibody Identification 03/27/18 17:11 WBC RBC Hgb Hct MCV MCH MCHC RDW Plt Count MPV Neut % (Auto) Lymph % (Auto) [place] % (Auto) Eos % (Auto) Baso % (Auto) Neut # (Auto) Lymph # (Auto) [place] # (Auto) Eos # (Auto) Baso # (Auto) Sodium Potassium Chloride Carbon Dioxide Anion Gap BUN Creatinine Est GFR ( Amer) Est GFR (Non-Af Amer) POC Glucose (mg/dL) Random Glucose Calcium Total Bilirubin AST ALT Alkaline Phosphatase Total Creatine Kinase CK-MB (Mass) Troponin I Total Protein Albumin Globulin Albumin/Globulin Ratio Free T4 1.27 TSH 3rd Generation Blood Type Antibody Screen Antibody Identification Assessment & Plan (1) Complicated migraine Assessment and Plan: Continue magnesium oxide 400 mg BID, aspirin 81 mg daily, fluids with NS at 100 mL/hr, PT/OT eval, echocardiogram with bubble study, and follow up with outpatient neurology (card and information was given) Thank you. Status: Acute Priority: High
[2018-03-27 21:21] LABS: SQUAMOUS EPITHIAL 7 /hpf (0-5); URINE BACTERIA RARE (<OCC); URINE BILIRUBIN NEGATIVE (NEGATIVE); URINE BLOOD NEGATIVE (NEGATIVE); URINE CLARITY Hazy (Clear); URINE COLOR Yellow (YELLOW); URINE GLUCOSE (UA) NORMAL (Normal); URINE LEUKOCYTE ESTERASE 3+ Leu/uL (Negative); URINE PROTEIN NEGATIVE (NEGATIVE); URINE UROBILINOGEN NORMAL mg/dL (0.2-1.0)
[2018-03-28 02:02] VITALS: RESP 20
--- NOTE | 2018-03-28 07:16 | CP.PCM.PN ---
Subjective - Date & Time of Evaluation Date of Evaluation: 03/28/18 Time of Evaluation: 07:15 - Subjective Subjective: Progress note for Dr. Jalloh Patient seen and examined at bedside. No acute events overnight. Patient seen by neurology yesterday. Patient is aware that she's getting antibiotics for a UTI. Patient aware of current plan. Patient denies headaches, fever, chills, nausea, vomiting, diarrhea, constipation. Objective - Vital Signs/Intake and Output Vital Signs (last 24 hours): Temp Pulse Resp BP Pulse Ox 98 F 44 L 20 106/61 96 03/28/18 04:39 03/28/18 04:39 03/28/18 04:39 03/28/18 04:39 03/28/18 04:39 - Medications Medications: Current Medications Aspirin (Ecotrin) 81 mg PO DAILY [facility] Last Admin: 03/27/18 11:10 Dose: 81 mg Ciprofloxacin (Cipro) 500 mg PO BID [facility] PRN Reason: Protocol Last Admin: 03/27/18 18:17 Dose: 500 mg Enoxaparin Sodium (Lovenox) 40 mg SC DAILY [facility] Last Admin: 03/27/18 11:11 Dose: 40 mg Famotidine (Pepcid) 20 mg PO BID [facility] Last Admin: 03/27/18 17:35 Dose: 20 mg Magnesium Oxide (Mag-Ox) 400 mg PO BID [facility] Last Admin: 03/27/18 17:35 Dose: 400 mg Ondansetron HCl (Zofran Inj) 4 mg IVP Q6 PRN PRN Reason: Nausea/Vomiting Pneumococcal Polyvalent Vaccine (Pneumovax 23 Vaccine) 0.5 ml IM .ONCE ONE Stop: 03/28/18 10:01 Rosuvastatin Calcium (Crestor) 10 mg PO [facility] Last Admin: 03/27/18 21:24 Dose: 10 mg - Labs Labs: 03/27/18 07:12 03/27/18 07:12 PT 10.6 SECONDS (9.7-12.2) 03/26/18 18:27 INR 1.0 03/26/18 18:27 APTT 32 SECONDS (21-34) 03/26/18 18:27 - Additional Findings Additional findings: - Constitutional Appears: Non-toxic, No Acute Distress - Head Exam Head Exam: NORMOCEPHALIC, ATRAUMATIC - Eye Exam Eye Exam: EOMI Pupil Exam: NORMAL ACCOMODATION, PERRL - ENT Exam ENT Exam: Mucous Membranes Moist - Respiratory Exam Respiratory Exam: Clear to Auscultation Bilateral. absent: Accessory Muscle Use , Rales, Rhonchi, Wheezes, Respiratory Distress - Cardiovascular Exam Cardiovascular Exam: REGULAR RHYTHM, +S1, +S2. absent: Diastolic murmur, Gallop , Rubs, Systolic Murmur - GI/Abdominal Exam GI & Abdominal Exam: Normal Bowel Sounds, Soft. absent: Distended, Firm, Guarding, Rigid, Tenderness - Extremities Exam Extremities exam: Negative for: pedal edema, tenderness - Neurological Exam Neurological exam: Alert, CN II-XII Intact, Oriented x3, Reflexes Normal Additional comments: upper and lower muscle strength 5/5 bilaterally equal sensation in UE and LE B/L - Psychiatric Exam Psychiatric exam: Normal Affect, Normal Mood - Skin Skin Exam: Dry, Intact, Normal Color, Warm Assessment and Plan - Assessment and Plan (Free Text) Assessment: 67 year old female with no significant past medical history is admitted for questionable TIA vs. complex migraine. Code stroke was called in ED. CT of head was negative. CTA of head and neck were also negative. Patient's calculated ASCVD risk is 7.2% for 10 year risk of heart disease or stroke. Complex migraine v TIA In ED: Pt received fentanyl, zofran and reglan Neurology consult: Dr. Pal consulted. It was recommended that patient receive magnesium sulfate, decadron and depakote 500 mg IVP once Per Neuro 03/27: Continue magnesium oxide 400 mg BID, aspirin 81 mg daily, fluids with NS at 100 mL/hr, PT/OT eval, echocardiogram with bubble study, and follow up with outpatient neurology (card and information was given) Lipid panel showed Cholesterol 210, HDL 55, TG [address] head: no intracranial hemorrhage Brain MRI no acute intracranial hemorrhage or infarct. Chronic lacunar type infarct. Mild generalized volume loss. MRA Head w/o contrast: unremarkable angiography of the brain MRA neck w/o contrast: normal angiography of the neck Echo: EF within normal range, transmitral doppler flow pattern is Grade I - abnormal relaxation. Trace circumferential pericardial effusion. Seroquel 25mg PO once 03/27 06:18 ASA 81 mg PO QD Crestor 10mg PO QHS Pain: toradol 15mg IVP Q6H PRN Nausea: Zofran 4mg IVP Q6H PRN Impaired Glucose Tolerance Recommend diet modification and exercise Accucheck ACHS Hgb A1c is 6.3 UTI UA positive for leukocyte esterase f/u Urine cx Patient placed on cipro 500mg PO BID low TSH 5/8 TSH 0.38 free T4 1.27 Prophylaxis SCDs, Lovenox 40 SC QD Pepcid 20mg PO BID Diet: Heart Healthy diet, low consistent carbohydrate diet discussed with Dr. Jalloh PT/OT eval: Physical therapy saw patient today and stated that patient needs home physical therapy. f/u Dr. Roman's recommendations discussed with Dr. Yeimi Geller, DO PGY1
--- NOTE | 2018-03-28 07:34 | CP.PCM.DIS ---
<Ai Geller - Last Filed: 03/28/18 18:59> Provider - Provider Date of Admission: 03/26/18 20:57 Attending physician: Brittany Jalloh DO Consults: cardiology consult: Dr. Roman Neuro consult: Dr. Pal Time Spent in preparation of Discharge (in minutes): 35 Diagnosis - Discharge Diagnosis (1) Complicated migraine Status: Resolved Priority: High Hospital Course - Lab Results Lab Results: Most Recent Lab Values WBC 5.5 K/uL (4.8-10.8) 03/27/18 07:12 RBC 4.76 Mil/uL (3.80-5.20) 03/27/18 07:12 Hgb 12.5 g/dL (11.0-16.0) 03/27/18 07:12 Hct 38.5 % (34.0-47.0) 03/27/18 07:12 MCV 80.8 fL (81.0-99.0) L 03/27/18 07:12 MCH 26.3 pg (27.0-31.0) L 03/27/18 07:12 MCHC 32.6 g/dL (33.0-37.0) L 03/27/18 07:12 RDW 15.0 % (11.5-14.5) H 03/27/18 07:12 Plt Count 208 K/uL (130-400) 03/27/18 07:12 MPV 9.3 fL (7.2-11.7) 03/27/18 07:12 Neut % (Auto) 74.9 % (50.0-75.0) 03/27/18 07:12 Lymph % (Auto) 23.0 % (20.0-40.0) 03/27/18 07:12 Brooke % (Auto) 1.5 % (0.0-10.0) 03/27/18 07:12 Eos % (Auto) 0.0 % (0.0-4.0) 03/27/18 07:12 Baso % (Auto) 0.6 % (0.0-2.0) 03/27/18 07:12 Neut # (Auto) 4.2 K/uL (1.8-7.0) 03/27/18 07:12 Lymph # (Auto) 1.3 K/uL (1.0-4.3) 03/27/18 07:12 Brooke # (Auto) 0.1 K/uL (0.0-0.8) 03/27/18 07:12 Eos # (Auto) 0.0 K/uL (0.0-0.7) 03/27/18 07:12 Baso # (Auto) 0.0 K/uL (0.0-0.2) 03/27/18 07:12 PT 10.6 SECONDS (9.7-12.2) 03/26/18 18:27 INR 1.0 03/26/18 18:27 APTT 32 SECONDS (21-34) 03/26/18 18:27 Sodium 144 mmol/L (132-148) 03/27/18 07:12 Potassium 4.5 mmol/L (3.6-5.2) 03/27/18 07:12 Chloride 107 mmol/L (98-107) 03/27/18 07:12 Carbon Dioxide 26 mmol/L (22-30) 03/27/18 07:12 Anion Gap 16 (10-20) 03/27/18 07:12 BUN 17 mg/dL (7-17) 03/27/18 07:12 Creatinine 0.7 mg/dL (0.7-1.2) 03/27/18 07:12 Est GFR ( Amer) > 60 03/27/18 07:12 Est GFR (Non-Af Amer) > 60 03/27/18 07:12 POC Glucose (mg/dL) 101 mg/dL (65-110) 03/28/18 06:31 Random Glucose 146 mg/dL (65-105) H 03/27/18 07:12 Hemoglobin A1c 6.3 % (4.2-6.5) 03/26/18 18:27 Calcium 10.3 mg/dl (8.6-10.4) 03/27/18 07:12 Total Bilirubin 0.5 mg/dL (0.2-1.3) 03/27/18 07:12 AST 26 U/L (14-36) 03/27/18 07:12 ALT 15 U/L (9-52) 03/27/18 07:12 Alkaline Phosphatase 76 U/L (38-126) 03/27/18 07:12 Total Creatine Kinase 76 U/L (30-135) 03/27/18 07:12 CK-MB (Mass) 1.25 ng/mL (0.0-3.38) 03/27/18 07:12 Troponin I 0.0120 ng/mL (0.00-0.120) 03/27/18 07:12 Total Protein 7.4 g/dL (6.3-8.3) 03/27/18 07:12 Albumin 3.9 g/dL (3.5-5.0) 03/27/18 07:12 Globulin 3.4 gm/dL (2.2-3.9) 03/27/18 07:12 Albumin/Globulin Ratio 1.1 (1.0-2.1) 03/27/18 07:12 Triglycerides 76 mg/dL (0-149) 03/26/18 18:27 Cholesterol 210 mg/dL (0-199) H 03/26/18 18:27 LDL Cholesterol Direct 128 mg/dL (0-129) 03/26/18 18:27 HDL Cholesterol 55 mg/dL (30-70) 03/26/18 18:27 Free T4 1.27 ng/dL (0.78-2.19) 03/27/18 17:11 TSH 3rd Generation 0.38 mIU/L (0.46-4.68) L 03/27/18 07:12 Urine Color Yellow (YELLOW) 03/27/18 21:12 Urine Clarity Hazy (Clear) 03/27/18 21:12 Urine pH 6.0 (5.0-8.0) 03/27/18 21:12 Ur Specific [place] 1.009 (1.003-1.030) 03/27/18 21:12 Urine Protein Negative mg/dL (NEGATIVE) 03/27/18 21:12 Urine Glucose (UA) Normal mg/dL (Normal) 03/27/18 21:12 Urine Ketones Negative mg/dL (NEGATIVE) 03/27/18 21:12 Urine Blood Negative (NEGATIVE) 03/27/18 21:12 Urine Nitrate Negative (NEGATIVE) 03/27/18 21:12 Urine Bilirubin Negative (NEGATIVE) 03/27/18 21:12 Urine Urobilinogen Normal mg/dL (0.2-1.0) 03/27/18 21:12 Ur Leukocyte Esterase 3+ Primitivo/uL (Negative) H 03/27/18 21:12 Urine WBC (Auto) 75 /hpf (0-5) H 03/27/18 21:12 Urine RBC (Auto) 3 /hpf (0-3) 03/27/18 21:12 Ur Squamous Epith Cells 7 /hpf (0-5) H 03/27/18 21:12 Urine Bacteria Rare (<OCC) 03/27/18 21:12 Blood Type B POSITIVE 03/26/18 18:27 Antibody Screen Positive 03/26/18 18:27 Antibody Identification Cancelled 03/26/18 18:27 - Hospital Course Hospital Course: H&P: 67 year old female with past medical history of anxiety presented to hospital for headache and facial drooping. Patient is accompanied with daughter who helps with history. Patient developed a mild headache around 3 pm in the afternoon. BARBER was constant and accompanied with nausea. Patient took Advil for pain with no relief. Headache worsened throughout the day and patient began to feel dizzy. Around 4 pm, patient's headache was very severe and she started to retch. Patient's daughter then noticed a right sided lip droop and patient began to complain of right upper extremity numbness in digits 2-4. Patient was brought to the ED and had code stroke called. CT of head on admission was negative. Patient was given Fentanyl, Reglan and Zofran and patient's headache and nausea improved. Patient is still complaining of severe lightheadedness with movement of her head. Hospital Course: Patient was given fluids, magnesium, and depakote during her stay. Patient exhibited no signs of weakness of upper or lower extremities bilaterally and no facial drooping during her stay. MRA head and neck showed normal angiography. MRI brain showed chronic lacunar infarcts in basal ganglia. Neurology consulted , evaluated and stated: to continue fluids, magnesium and follow up pt/ot eval, echo, and have patient follow up outpatient neurology for further management. Patient had bradycardia during her stay but did not have any chest pain. Patient states she has some dizziness when walking to the bathroom. Patient runs hypotensive in low 100s systolic and patient states it she was told she has this issue at times. CT head showed no intracranial hemorrhage, brain MRI showed no acute intracranial hemorrhage or infarct and showed chronic lacunar type infarct in basal ganglia as well as mild generalized volume loss. Echo showed EF within normal range, transmitral doppler flow pattern is Grade I - abnormal relaxation. Trace circumferential pericardial effusion. Dr. Pal stated patient needs to follow up outpatient neurology. Dr. Roman cleared patient for discharge. Physical therapy states patient will need prescription for home physical therapy once [facility] is approved. Patient asymptomatic at this time and is sent home Discharged with instructions to: follow up with primary care remember to eat healthy, eat regularly speak to diabetic wood ski maker about carbohydrates and dietary adjustments and exercise advised take medication as directed follow up with neurology as outpatient. Per Dr. Pal's note, Dr. Pal gave the clinic's card and contact information at bedside on 03/27 apply for [facility] for home Physical therapy and for further medical management. Please follow up with PMD within 1 week and follow up with Dr. Roman in 1 to 2 weeks. Discharge Medications: Cipro 500mg PO BID x 7 days Florastor 250mg PO BID x [address] Yeimi Geller, DO PGY1 Above is a brief summary of events during hospital course. Please See EMR for more information - Date & Time of H&P Date of H&P: 03/28/18 Time of H&P: 07:40 Discharge Exam - Head Exam Head Exam: ATRAUMATIC, NORMAL INSPECTION, NORMOCEPHALIC - Additional Findings Additional findings: Additional Findings Additional findings: - Constitutional Appears: Non-toxic, No Acute Distress - Head Exam Head Exam: NORMOCEPHALIC, ATRAUMATIC - Eye Exam Eye Exam: EOMI Pupil Exam: NORMAL ACCOMODATION, PERRL - ENT Exam ENT Exam: Mucous Membranes Moist - Respiratory Exam Respiratory Exam: Clear to Auscultation Bilateral. absent: Accessory Muscle Use , Rales, Rhonchi, Wheezes, Respiratory Distress - Cardiovascular Exam Cardiovascular Exam: REGULAR RHYTHM, +S1, +S2. absent: Diastolic murmur, Gallop , Rubs, Systolic Murmur - GI/Abdominal Exam GI & Abdominal Exam: Normal Bowel Sounds, Soft. absent: Distended, Firm, Guarding, Rigid, Tenderness - Extremities Exam Extremities exam: Negative for: pedal edema, tenderness - Neurological Exam Neurological exam: Alert, CN II-XII Intact, Oriented x3, Reflexes Normal Additional comments: upper and lower muscle strength 5/5 bilaterally equal sensation in UE and LE B/L - Psychiatric Exam Psychiatric exam: Normal Affect, Normal Mood - Skin Skin Exam: Dry, Intact, Normal Color, Warm Discharge Plan - Discharge Medications Prescriptions: Ciprofloxacin [Cipro] 500 mg PO BID #14 tab Saccharomyces Boulardi [Florastor] 250 mg PO BID #14 cap - Follow Up Plan Condition: FAIR Disposition: HOME/ ROUTINE Patient education suggested?: Yes Instructions: Ciprofloxacin (Systemic), Saccharomyces boulardii, Heart Healthy Diet, Migraine Headache (DC), Urinary Tract Infection, Adult (DC), Nausea and Vomiting, Adult (DC) Additional Instructions: follow up with primary care remember to eat healthy, eat regularly speak to diabetic wood ski maker about carbohydrates and dietary adjustments and exercise advised take medication as directed follow up with neurology as outpatient. Per Dr. Pal's note, Dr. Pal gave the clinic's card and contact information at bedside on 03/27 apply for [facility] for home Physical therapy and for further medical management. Please follow up with PMD within 1 week and follow up with Dr. Roman in 1 to 2 weeks. Referrals: Lucila Roman MD [Staff Provider] - <Brittany Jalloh V - Last Filed: 03/28/18 19:29> Provider - Provider Date of Admission: 03/26/18 20:57 Attending physician: Brittany Jalloh, Hospital Course - Lab Results Lab Results: Micro Results 03/27/18 21:12 Urine Urine Culture - Preliminary No growth. Most Recent Lab Values WBC 9.3 K/uL (4.8-10.8) D 03/28/18 10:42 RBC 4.44 Mil/uL (3.80-5.20) 03/28/18 10:42 Hgb 11.9 g/dL (11.0-16.0) 03/28/18 10:42 Hct 36.2 % (34.0-47.0) 03/28/18 10:42 MCV 81.5 fL (81.0-99.0) 03/28/18 10:42 MCH 26.8 pg (27.0-31.0) L 03/28/18 10:42 MCHC 32.8 g/dL (33.0-37.0) L 03/28/18 10:42 RDW 14.9 % (11.5-14.5) H 03/28/18 10:42 Plt Count 190 K/uL (130-400) 03/28/18 10:42 MPV 9.7 fL (7.2-11.7) 03/28/18 10:42 Neut % (Auto) 61.7 % (50.0-75.0) 03/28/18 10:42 Lymph % (Auto) 31.4 % (20.0-40.0) 03/28/18 10:42 Brooke % (Auto) 5.9 % (0.0-10.0) 03/28/18 10:42 Eos % (Auto) 0.7 % (0.0-4.0) 03/28/18 10:42 Baso % (Auto) 0.3 % (0.0-2.0) 03/28/18 10:42 Neut # (Auto) 5.7 K/uL (1.8-7.0) 03/28/18 10:42 Lymph # (Auto) 2.9 K/uL (1.0-4.3) 03/28/18 10:42 Brooke # (Auto) 0.5 K/uL (0.0-0.8) 03/28/18 10:42 Eos # (Auto) 0.1 K/uL (0.0-0.7) 03/28/18 10:42 Baso # (Auto) 0.0 K/uL (0.0-0.2) 03/28/18 10:42 PT 10.6 SECONDS (9.7-12.2) 03/26/18 18:27 INR 1.0 03/26/18 18:27 APTT 32 SECONDS (21-34) 03/26/18 18:27 Sodium 142 mmol/L (132-148) 03/28/18 10:42 Potassium 4.8 mmol/L (3.6-5.2) 03/28/18 10:42 Chloride 104 mmol/L (98-107) 03/28/18 10:42 Carbon Dioxide 27 mmol/L (22-30) 03/28/18 10:42 Anion Gap 16 (10-20) 03/28/18 10:42 BUN 26 mg/dL (7-17) H 03/28/18 10:42 Creatinine 0.9 mg/dL (0.7-1.2) 03/28/18 10:42 Est GFR ( Amer) > 60 03/28/18 10:42 Est GFR (Non-Af Amer) > 60 03/28/18 10:42 POC Glucose (mg/dL) 103 mg/dL (65-110) 03/28/18 17:51 Random Glucose 89 mg/dL (65-105) 03/28/18 10:42 Hemoglobin A1c 6.3 % (4.2-6.5) 03/26/18 18:27 Calcium 10.4 mg/dl (8.6-10.4) 03/28/18 10:42 Phosphorus 2.0 mg/dL (2.5-4.5) L 03/28/18 10:42 Magnesium 2.5 mg/dL (1.6-2.3) H 03/28/18 10:42 Total Bilirubin 0.3 mg/dL (0.2-1.3) 03/28/18 10:42 AST 28 U/L (14-36) 03/28/18 10:42 ALT 10 U/L (9-52) 03/28/18 10:42 Alkaline Phosphatase 72 U/L (38-126) 03/28/18 10:42 Total Creatine Kinase 76 U/L (30-135) 03/27/18 07:12 CK-MB (Mass) 1.25 ng/mL (0.0-3.38) 03/27/18 07:12 Troponin I 0.0120 ng/mL (0.00-0.120) 03/27/18 07:12 Total Protein 6.9 g/dL (6.3-8.3) 03/28/18 10:42 Albumin 3.8 g/dL (3.5-5.0) 03/28/18 10:42 Globulin 3.1 gm/dL (2.2-3.9) 03/28/18 10:42 Albumin/Globulin Ratio 1.2 (1.0-2.1) 03/28/18 10:42 Triglycerides 76 mg/dL (0-149) 03/26/18 18:27 Cholesterol 210 mg/dL (0-199) H 03/26/18 18:27 LDL Cholesterol Direct 128 mg/dL (0-129) 03/26/18 18:27 HDL Cholesterol 55 mg/dL (30-70) 03/26/18 18:27 Free T4 1.27 ng/dL (0.78-2.19) 03/27/18 17:11 TSH 3rd Generation 0.38 mIU/L (0.46-4.68) L 03/27/18 07:12 Urine Color Yellow (YELLOW) 03/27/18 21:12 Urine Clarity Hazy (Clear) 03/27/18 21:12 Urine pH 6.0 (5.0-8.0) 03/27/18 21:12 Ur Specific [place] 1.009 (1.003-1.030) 03/27/18 21:12 Urine Protein Negative mg/dL (NEGATIVE) 03/27/18 21:12 Urine Glucose (UA) Normal mg/dL (Normal) 03/27/18 21:12 Urine Ketones Negative mg/dL (NEGATIVE) 03/27/18 21:12 Urine Blood Negative (NEGATIVE) 03/27/18 21:12 Urine Nitrate Negative (NEGATIVE) 03/27/18 21:12 Urine Bilirubin Negative (NEGATIVE) 03/27/18 21:12 Urine Urobilinogen Normal mg/dL (0.2-1.0) 03/27/18 21:12 Ur Leukocyte Esterase 3+ Primitivo/uL (Negative) H 03/27/18 21:12 Urine WBC (Auto) 75 /hpf (0-5) H 03/27/18 21:12 Urine RBC (Auto) 3 /hpf (0-3) 03/27/18 21:12 Ur Squamous Epith Cells 7 /hpf (0-5) H 03/27/18 21:12 Urine Bacteria Rare (<OCC) 03/27/18 21:12 Blood Type B POSITIVE 03/26/18 18:27 Antibody Screen Positive 03/26/18 18:27 Antibody Identification Cancelled 03/26/18 18:27 Attending/Attestation - Attestation I have personally seen and examined this patient.: Yes I have fully participated in the care of the patient.: Yes I have reviewed all pertinent clinical information, including history, physical exam and plan: Yes Notes (Text): Patient seen, examined and case discussed with veterinary medical officer. Patient seen at bedside this afternoon with daughter present at bedside. Discharge Diagnoses: 1) Headache Complex Migraine Headache * In ED: Pt received fentanyl, zofran and reglan. * Patient received on admission Magnesium sulfate, decadron and depakote 500 mg IVP once on admission. This morning patient received Seroquel 25mg PO once. * Neurology consult: Dr. Pal on board-->help appreciated. * Hgb A1c is 6.3 * Lipid panel showed Cholesterol 210, HDL 55, TG 76 LDL 128 * CT head: no intracranial hemorrhage * Brain MRI no acute intracranial hemorrhage or infarct. Chronic lacunar type infarct. Mild generalized volume loss. * MRA Head w/o contrast: unremarkable angiography of the brain * MRA neck w/o contrast: normal angiography of the neck * f/u Echo pending report * ASA 81 mg PO qdaily * Crestor 10mg PO QHS * Nausea: Zofran 4mg IVP Q6H PRN 2) Impaired Glucose intolerance * Recommend diet modification and exercise * Accucheck achs 3) Bradycardia * Continue to monitor on telemetry * pending echocardiogram 4) Low TSH * 0.38; f/u free T4 5) Dysuria * Start Ciprofloxacin 500mg PO BID to cover for UTI * Ordered for UA and urine culture 6) Prophylaxis * SCDs * Lovenox 40 SC QD * Pepcid 20mg PO BID Disposition: f/u physical therapy, see if symptoms are abated of headache are abated, f/u echo and cardio. Possible d/c in AM
[2018-03-28] MEDS ORDERED: Pneumococcal 23-Valent Vaccine IM ONE ×2 (10:00→11:30)
[2018-03-28] MEDS: Saccharomyces Boulardi 250 mg Cap PO SCH ×2 (10:02→17:52)
[2018-03-28] MEDS: Magnesium Oxide 400 mg Tab UD PO SCH ×2 (10:02→17:52)
[2018-03-28] MEDS: Enoxaparin 40 mg Syringe SC SCH (10:03)
[2018-03-28 10:55] LABS: BASO % 0.3 % (0.0-2.0); EOS # 0.1 K/uL (0.0-0.7); EOS % 0.7 % (0.0-4.0); HEMOGLOBIN 11.9 g/dL (11.0-16.0); LYMPH # 2.9 K/uL (1.0-4.3); LYMPH % 31.4 % (20.0-40.0); MEAN CELL VOLUME 81.5 fL (81.0-99.0); MEAN CORPUSCULAR HEMOGLOBIN 26.8 pg (27.0-31.0); MEAN CORPUSCULAR HGB CONC 32.8 g/dL (33.0-37.0); MEAN PLATELET VOLUME 9.7 fL (7.2-11.7); MONO # 0.5 K/uL (0.0-0.8); MONO % 5.9 % (0.0-10.0); NEUT # 5.7 K/uL (1.8-7.0); NEUT % 61.7 % (50.0-75.0); RBC 4.44 Mil/uL (3.80-5.20); RED CELL DISTRIBUTION WIDTH 14.9 % (11.5-14.5)
[2018-03-28 11:02] LABS: WHITE BLOOD COUNT 9.3 K/uL (4.8-10.8)
[2018-03-28 12:00] LABS: ALB/GLOB RATIO 1.2 (1.0-2.1); ALBUMIN 3.8 g/dL (3.5-5.0); ALT/SGPT 10 U/L (9-52); AST/SGOT 28 U/L (14-36); BLOOD UREA NITROGEN 26 mg/dL (7-17); CALCIUM 10.4 mg/dl (8.6-10.4); GFR AFRICAN-AMERICAN > 60; GFR NON-AFRICAN AMERICAN > 60
[2018-03-28] MEDS ORDERED: Potassium Phosphate 30 MMOLE in Sodium Chloride 0.9% 250 ML IV ONE (14:00)
--- NOTE | 2018-03-28 19:22 | CARD ---
APPROVED REPORT EKG Measurement Heart [id number] <Conclusion> Sinus bradycardia Low voltage QRS Borderline ECG
[2018-03-28 19:23] VITALS: BP 110/55; PULSE 49; TEMP 98; O2SAT 97
--- NOTE | 2018-03-28 19:24 | CARD ---
APPROVED REPORT EKG Measurement Heart [id number] <Conclusion> Marked sinus bradycardia Abnormal ECG
== END 2018-03-28 19:47 | disposition home or self-care (01) ==
LOC: C.ER 18:15 → C.9E 20:57 → C.6T 21:39
PROVIDERS: ADMIT Hospitalist; ATTEND Hospitalist
DX: G43.109 Migraine with aura, not intractable, without status migrainosus (principal); I10 Essential (primary) hypertension; E11.9 Type 2 diabetes mellitus without complications; R00.1 Bradycardia, unspecified; R30.0 Dysuria; R73.02 Impaired glucose tolerance (oral); Z87.891 Personal history of nicotine dependence
CPT/HCPCS: 36415; 70450; 70496; 70498; 70544; 70547; 70551; 71045; 80053; 80061; 81001; 82948; 83036; 83735; 84100; 84439; 84443; 84484; 85025; 85610; 85730; 86850; 86900; 87086; 90732; 93005; 93306; 96365; 96374; 97110; 97116; 97162; 97166; 97530; 99285; G0009; G0378; G8978; G8979; G8987; G8988; J1100; J1200; J1650; J1885; J2405; J3010; J3475; Q9967